=== PATIENT | male | born 1990 | race Two or more races ===

== ENCOUNTER 2022-09-27 15:49 | Emergency (ER) | payer OTHER ==
[~2022-09-27] VITALS: Ht 170.2 cm; Wt 89.8 kg
--- NOTE | 2022-09-27 16:01 | NUR ---
[facility] [employer] UNIT 19X2 FROM ALF FOR EPISODE OF SOB AND DIAPHORESIS, PT STATES "I FEEL SO MUCH BETTER NOW". PT AMBULATED TO ROOM WITH STEADY GAIT. NOT IN ACUTE DISTRESS. BREATHING EVEN AND UNLABORED. AWAITING FOR MD JACOBSEN.
--- NOTE | 2022-09-27 17:53 | NUR ---
PT MEDICALLY CLEARED. D/C TO [employer] IN STABLE CONDITION
[2022-09-27 17:54] VITALS: BP 135/80
== END 2022-09-27 17:55 | disposition home or self-care (01) ==
LOC: ER 15:58
DX: R00.0 Tachycardia, unspecified (principal)
CPT/HCPCS: 74018